=== PATIENT | female | born 1990 | race Caucasian/White ===

== ENCOUNTER 2023-01-16 15:46 | Emergency (ER) | payer OTHER, BC ==
[2023-01-16] MEDS ORDERED: Ketorolac Tromethamine 30 MG/ML VIAL ONE (16:42)
[2023-01-16] MEDS ORDERED: Ondansetron ODT 4 MG TAB ONE (16:43)
== END 2023-01-16 17:23 | disposition home or self-care (01) ==
LOC: ERS 15:46
DX: S09.90XA Unspecified injury of head, initial encounter (principal); R11.0 Nausea; W01.0XXA Fall on same level from slipping, tripping and stumbling without subsequent striking against object, initial encounter
CPT/HCPCS: 96372; J1885; Q0162